=== PATIENT | female | born 1945 | race Caucasian/White ===

== ENCOUNTER 2018-10-10 12:03 | Emergency (ER) | payer MEDICARE, SELFPAY ==
[2018-10-10] VITALS (8 sets, daily range): BP systolic 117–149; BP diastolic 59–75; PULSE 70–76; RESP 12–20; TEMP 36.7; O2SAT 97–98
--- NOTE | 2018-10-10 12:17 | DI.RAD.S_ITS ---
PROCEDURE: XR CHEST 1V INDICATIONS: chest pain TECHNIQUE: One view of the chest was acquired. COMPARISON: [facility], , XR CXR 1 VIEW, 10/07/2001, 8:32. FINDINGS: Surgical changes and devices: None. Lungs and pleura: Lungs are clear. No pleural effusions or pneumothorax. Calcified nodules overlying the left upper lobe are unchanged since 2001, compatible with a benign process. Mediastinum: Mediastinal contours appear normal. Heart size is normal. Bones and chest wall: No suspicious bony lesions. Overlying soft tissues appear unremarkable. IMPRESSION: Stable chest. No acute cardiopulmonary process is evident. Dictated by: Ken Mcintyre M.D. on 10/10/2018 at 11:41 Approved by: Ken Mcintyre M.D. on 10/10/2018 at 11:43
--- NOTE | 2018-10-10 12:22 | ED_ITS ---
HPI - Chest Pain General Chief Complaint: Chest Pain Stated Complaint: Symptoms of heart attack Time Seen by Provider: 10/10/18 12:21 Source: patient Mode of arrival: ambulatory Limitations: no limitations History of Present Illness HPI narrative: 73-year-old female arrived by private vehicle. She states that approximately 1100 hours this morning she started having left-sided chest symptoms. She could not characterize it any more than discomfort. She did state that her teeth were hurting. No shortness of breath. At worst her pain was 8/10. She went home and her took her blood pressure in the systolic blood pressure was in the 140s which they report is high for her. She stated that the symptoms improved to 5/10. By the time she arrived here in the emergency department she states that it was barely there is maybe a 1 or 2/10. Has never had any symptoms like this in the past. Related Data Home Medications Medication Instructions Recorded Confirmed Lantus U-100 Insulin 0 unit SQ BID #0 02/01/16 atorvastatin [Lipitor] 20 mg PO BEDTIME #30 tab 02/01/16 10/10/18 gabapentin [Neurontin] 600 mg PO DAILY #0 02/01/16 10/10/18 pantoprazole [Protonix] 40 mg PO BID #0 tab 02/01/16 10/10/18 clonidine HCl 0.1 mg PO DAILY 10/10/18 10/10/18 estradiol 0.5 mg PO DAILY 10/10/18 10/10/18 levothyroxine 75 mcg PO DAILY 10/10/18 10/10/18 losartan 25 mg PO DAILY 10/10/18 10/10/18 metformin 10/10/18 Allergies Allergy/AdvReac Type Severity Reaction Status Date / Time No Known Drug Allergies Allergy Unknown Unverified 08/08/17 12:53 INGREDIENT: NO KNOWN - NO Allergy Unknown Uncoded 08/08/17 12:53 KNOWN DRUG ALLERGY Review of Systems Constitutional Denies fever(s) and Denies headache(s) ENT Ears, Nose, Mouth, and Throat: Denies vertigo, Denies dizziness and Denies headache(s) Cardiovascular Reports chest pain, Denies dyspnea and Denies dyspnea on exertion Respiratory Denies dyspnea and Denies dyspnea on exertion Gastrointestinal Gastrointestinal: Denies abdominal pain, Denies nausea and Denies vomiting Genitourinary Denies dysuria Musculoskeletal Denies myalgias and Denies arthralgias Integumentary/Breasts Denies lesions and Denies rash Neurologic Denies vertigo, Denies dizziness and Denies headache(s) Hematologic/Lymphatic Denies easy bleeding and Denies easy bruising [facility] Medical History Diabetes (Acute) Hypothyroid (Acute) Social History Smoking Status: Never smoker Social History Smoking Status: Never smoker Exam Initial Vital Signs Initial Vital Signs: Vital Signs Temperature 98.0 F 10/10/18 12:15 Pulse Rate 76 10/10/18 12:15 Respiratory Rate 18 10/10/18 12:15 Blood Pressure 149/66 H 10/10/18 12:15 Pulse Oximetry 98 10/10/18 12:15 Const General: cooperative, comfortable, well developed, well groomed and No acute distress Orientation: alert, awake and oriented x3 HENMT Head: normal to inspection and normocephalic Chest Chest: normal inspection of the chest Resp Effort & Inspection: normal respiratory effort Auscultation: clear to auscultation bilaterally Cardio Rate: regular rate Rhythm: regular rhythm Pulses: radial pulses present GI Inspection: non-distended Palpation: soft, No firm and No tender Skin Lesions: no lesions Rashes: no rashes Neuro General: alert, awake and oriented x3 Cognition: normal cognition Speech: speech normal Extrem General: normal to inspection, capillary refill normal and No edema Psych Appearance: grossly normal and well kempt Scores GCS [place] coma scale eye opening: Spontaneous [place] coma scale verbal response: Orientated Zeinab coma scale motor response: Obey commands [place] coma scale total score: 15 Course Orders Ordered: ED Orders 10/10/18 12:17 XR chest 1V Stat EKG-12 Lead Stat 10/10/18 12:30 Complete Blood Count AUTO DIFF Stat Comprehensive Metabolic Panel Stat Lipase Stat Partial Thromboplastin Time Stat Prothrombin Time INR Stat Troponin & CK Cardiac Panel Stat Heparin Sodium/Dextrose (Heparin Drip) 25,000 unit in 500 mls @ 19.272 mls/hr IV CONT MARY; Protocol Discontinued Medications Aspirin (Aspirin Chew) 324 mg PO NOW ONE Stop: 10/10/18 13:26 Last Admin: 10/10/18 13:30 Dose: 324 mg Heparin Sodium (Porcine) (Heparin) 4,000 unit IV NOW ONE Stop: 10/10/18 14:49 Vital Signs - 8 hr 10/10/18 12:15 10/10/18 13:32 Temperature 98.0 F Pulse Rate 76 70 Respiratory Rate 18 12 Blood Pressure 149/66 H Blood Pressure [Right Arm] 133/60 Pulse Oximetry 98 97 MDM - Chest Pain Lab Data Attestation: I reviewed the patient's lab results. Result diagrams: 10/10/18 12:30 10/10/18 12:30 Lab Results 10/10/18 10/10/18 10/10/18 Range/Units 12:30 12:30 12:30 WBC 7.0 (4.5-11.0) X10^3/uL RBC 4.93 (4.0-5.2) X10^6/uL Hgb 12.7 (12.0-16.0) g/dL Hct 38.6 (36-46) % MCV 78.3 L (80-100) fL MCH 25.8 L (26-34) PG MCHC 32.9 (30-36) % RDW 15.8 H (11.6-14.8) % Plt Count 265 (150-400) X10^3/uL Neut % (Auto) 67.4 (50-75) % Lymph % (Auto) 20.6 L (25-40) % Atkinson % (Auto) 8.2 (3-14) % Eos % (Auto) 2.9 (2-4) % Baso % (Auto) 0.9 (0-2) % Neut # (Auto) 4700 (0052-0239) /uL Lymph # (Auto) 1400 (0183-2852) /uL Atkinson # (Auto) 600 (0-900) /uL Eos # (Auto) 200 (0-450) /uL Baso # (Auto) 100 (0-100) /uL PT 11.1 (10.1-12.7) SECONDS INR 1.0 (0.9-1.3) APTT 34 (26.4-36.2) SECONDS Sodium 138 (137-145) mmol/L Potassium 4.4 (3.4-5.1) mmol/L Chloride 102 (98-107) mmol/L Carbon Dioxide 25 (22-32) mmol/L BUN 13 (7-17) mg/dL Creatinine 0.70 (0.52-1.04) mg/dL Estimated GFR > 60.0 (>60) mL/min BUN/Creatinine Ratio 18.6 (6-22) Glucose 123 H (80-110) mg/dL Calcium 9.8 (8.4-10.2) mg/dL Total Bilirubin 0.6 (0.2-1.3) mg/dL AST 20 (14-36) IU/L ALT 19 (9-52) IU/L Alkaline Phosphatase 80 (38-126) U/L Total Creatine Kinase 95 (30-135) U/L CK-MB (CK-2) TNP CK-MB (CK-2) Rel Index TNP Troponin I 0.192 H* (0.01-0.034) ng/mL Total Protein 7.5 (6.3-8.2) g/dL Albumin 4.4 (3.5-5.0) g/dL Globulin 3.1 (1.7-4.1) g/dL Albumin/Globulin Ratio 1.4 (1.0-2.8) Lipase 112 (23-300) U/L Imaging Data Chest x-ray: Radiologist's impression: [address] [address] XRay Report Signed Patient: Wendie Sandoval LMR#: [id number] : 6Acct:[id number] Age/Sex: 73 / FDate of Service: 10/10/18 Loc: ED Accession Number: [id number] Procedure: XR chest 1V Ordering Provider: Cl Israel D.O. PROCEDURE: XR CHEST 1V INDICATIONS: chest pain TECHNIQUE: One view of the chest was acquired. COMPARISON: [facility], , XR CXR 1 VIEW, 10/07/2001, 8:32. FINDINGS: Surgical changes and devices: None. Lungs and pleura: Lungs are clear. No pleural effusions or pneumothorax. Calcified nodules overlying the left upper lobe are unchanged since 2001, compatible with a benign process. Mediastinum: Mediastinal contours appear normal. Heart size is normal. Bones and chest wall: No suspicious bony lesions. Overlying soft tissues appear unremarkable. IMPRESSION: Stable chest. No acute cardiopulmonary process is evident. Dictated by: Ken Mcintyre M.D. on 10/10/2018 at 11:41 Approved by: Ken Mcintyre M.D. on 10/10/2018 at 11:43 ECG Data Attestation: I personally reviewed and interpreted this ECG as follows: Prior ECG tracings: not available for review Interpretation: Sinus rhythm Normal axis Ventricular rate is [address] T wave changes MDM Narrative Medical decision making narrative: Patient is given aspirin here in the emergency department. I did discuss the case with Dr. MAYNARD with Cardiology at [facility] who stated that given the story that I told him and the labs that I related him he would not take the patient to [facility] emergently. She has not ST elevations on her EKG. He recommended stress testing and following the enzymes. I then discussed the case with Dr. Abebe with Internal Medicine who will admit the patient for further evaluation and treatment. I discussed the transfer of the admission with the patient and her her at bedside. They both expressed understanding and agreement with plan. Heparin started in the emergency department. Discharge Plan Departure Patient Disposition: [facility] Clinical Impression: Non-ST elevation DC (NSTEMI) Prescriptions: No Action pantoprazole [Protonix] 40 MG tablet,delayed release (DR/EC) 40 mg PO BID Qty: 0 RF: 0 Lantus U-100 Insulin 100 UNIT/1 ML solution 30 unit SQ BID Qty: 0 RF: 0 atorvastatin [Lipitor] 20 MG tablet 20 mg PO BEDTIME Qty: 30 RF: 0 gabapentin [Neurontin] 300 MG capsule 600 mg PO QPM Qty: 0 RF: 0 metformin 500 mg tablet 1,000 mg PO BID RF: 0 clonidine HCl 0.1 mg tablet 0.1 mg PO QPM RF: 0 levothyroxine 75 mcg tablet 75 mcg PO DAILY RF: 0 losartan 25 mg tablet 25 mg PO DAILY RF: 0 estradiol 0.5 mg tablet 0.5 mg PO QPM RF: 0 Referrals: Cl Mccracken MD [Primary Care Provider] -
[2018-10-10 12:54] LABS: Add Manual Diff / Slide Review NO; Basophils Absolute Auto 100 /uL (0-100); Basophils Percent Auto 0.9 % (0-2); Eosinophils Absolute Auto 200 /uL (0-450); Eosinophils Percent Auto 2.9 % (2-4); Hematocrit 38.6 % (36-46); Hemoglobin 12.7 g/dL (12.0-16.0); Lymphocytes Absolute Auto 1400 /uL (1100-4500); Lymphocytes Percent Auto 20.6 % (25-40); Mean Corpuscular HGB Conc 32.9 % (30-36); Mean Corpuscular Hemoglobin 25.8 PG (26-34); Mean Corpuscular Volume 78.3 fL (80-100); Monocytes Absolute Auto 600 /uL (0-900); Monocytes Percent Auto 8.2 % (3-14); Neutrophils Absolute Auto 4700 /uL (1500-7000); Neutrophils Percent Auto 67.4 % (50-75); Platelet Count 265 X10^3/uL (150-400); Red Blood Cell Count 4.93 X10^6/uL (4.0-5.2); Red Cell Distribution Width 15.8 % (11.6-14.8)
[2018-10-10 12:58] LABS: Prothrombin Time 11.1 SECONDS (10.1-12.7)
[2018-10-10 13:01] LABS: PTT Partial Thromboplastin Tim 34 SECONDS (26.4-36.2)
[2018-10-10 13:05] LABS: Alanine Aminotransferase 19 IU/L (9-52); Albumin 4.4 g/dL (3.5-5.0); Albumin Globulin Ratio 1.4 (1.0-2.8); Alkaline Phosphatase 80 U/L (38-126); Aspartate Aminotransferase 20 IU/L (14-36); BUN Creatinine Ratio 18.6 (6-22); Bilirubin Total 0.6 mg/dL (0.2-1.3); Blood Urea Nitrogen 13 mg/dL (7-17); Calcium 9.8 mg/dL (8.4-10.2); Carbon Dioxide 25 mmol/L (22-32); Chloride 102 mmol/L (98-107); Creatine Kinase 95 U/L (30-135); Estimated Glomerular Filt Rate > 60.0 mL/min (>60); Globulin 3.1 g/dL (1.7-4.1); Glucose 123 mg/dL (80-110); HEMOLYSIS < 15 (0-50); Lipase 112 U/L (23-300); Potassium 4.4 mmol/L (3.4-5.1); Sodium 138 mmol/L (137-145); Total Protein 7.5 g/dL (6.3-8.2)
[2018-10-10 13:18] LABS: Troponin I 0.192 ng/mL (0.01-0.034)
[2018-10-10] MEDS: ASPIRIN 81 MG TAB 324 MG PO (13:30)
[2018-10-10] MEDS: HEPARIN 5,000 UNIT/ML VIAL 4000 UNIT IV (15:05)
[2018-10-10] MEDS: HEPARIN DRIP 25,000 UNIT/500 ML IV.SOLN 19.272 UNIT IV (15:06)
== END 2018-10-10 18:11 | disposition short-term general hospital (02) ==
PROVIDERS: Emergency Provider Emergency Medicine; Family Provider Family Medicine; PCP Family Medicine
DX: I21.4 Non-ST elevation (NSTEMI) myocardial infarction (principal)
CPT/HCPCS: 36591; 71045; 80053; 82550; 83690; 84484; 85025; 85610; 85730; 93005; 96365; 96366; 96376; 99284; 99285; J1644

== ENCOUNTER 2019-03-05 08:30 | Outpatient (RCR) | payer MEDICARE, SELFPAY | END 2019-03-10 11:11 | LOC: CAR 08:30 | PROVIDERS: PCP Family Medicine; Visit Provider Family Medicine | DX: I21.4 Non-ST elevation (NSTEMI) myocardial infarction (principal) | CPT/HCPCS: 93798 ==

== ENCOUNTER → 2020-02-05 16:47 | Outpatient (CLI) | payer MEDICARE, OTHER, SELFPAY ==
--- NOTE | 2020-02-05 | DI.MG.S_ITS ---
BILATERAL DIGITAL SCREENING MAMMOGRAM 3D/2D WITH CAD: 02/05/2020 CLINICAL: Routine screening. Comparison is made to exams dated: 08/03/2015 mammogram, 09/11/2013 mammogram, 06/02/2010 mammogram, and 01/21/2008 mammogram - [facility]. There are scattered fibroglandular elements in both breasts. Current study was also evaluated with a Computer Aided Detection (CAD) system. No significant masses, calcifications, or other findings are seen in either breast. There has been no significant interval change. IMPRESSION: NEGATIVE There is no mammographic evidence of malignancy. A 1 year screening mammogram is recommended. This exam was interpreted at Station ID: [id number]. NOTE: For mammograms, a report in lay terms will be sent to the patient. Approximately 15% of breast malignancies will not be visualized mammographically. In the management of a palpable breast mass, a negative mammogram must not discourage biopsy of a clinically suspicious lesion. Electronically Signed By: Abdiaziz burris/vicente:02/05/2020 17:27:33 letter sent: Normal Exam ACR BI-RADS Category 1: Negative [id number]
== END ==
PROVIDERS: PCP Family Medicine; Referring Provider Family Medicine; Visit Provider Family Medicine
DX: Z12.31 Encounter for screening mammogram for malignant neoplasm of breast (principal)
CPT/HCPCS: 77063; 77067

== ENCOUNTER → 2020-11-27 11:06 | Outpatient (CLI) | payer MEDICARE, OTHER, SELFPAY ==
--- NOTE | 2020-11-27 11:07 | DI.MRI.S_ITS ---
PROCEDURE: MR KNEE RT WO CON INDICATIONS: Unspecified internal derangement of right knee TECHNIQUE: Noncontrast sagittal PD fast spin echo and T2 fast spin echo with fat saturation, sagittal 3-D FLASH with fat saturation; coronal T1 spin echo and PD fast spin echo with fat saturation, and axial PD fast spin echo with fat saturation through the knee. COMPARISON: [facility], MR, KNEE WITHOUT CONTRAST, 07/06/2014, 14:26. FINDINGS: Menisci: Medial meniscus: Ill-defined tear of the medial meniscal body with abnormal signal extending to the superior articular surface. Lateral meniscus: Lateral meniscal tear also noted involving the body and possibly the anterior horn to much lesser extent. There is near complete extrusion. Cruciate ligaments: Anterior cruciate ligament: Intact. Posterior cruciate ligament: Intact. Medial structures: The medial collateral ligament: Intact. Semimembranosus tendon: Intact. Visualized pes anserinus tendons: Intact. Bursal fluid: none. Lateral structures: The lateral collateral ligament intact. Biceps femoris tendon appears intact. Popliteus tendon grossly unremarkable. Iliotibial band appears intact. Anterior structures: Quadriceps tendon: Intact. Medial patellofemoral ligament: Intact. Lateral patellofemoral ligament: Intact. Patellar tendon: Mild tendinopathy. Anterior soft tissues: Prepatellar and superficial infrapatellar subcutaneous edema/fluid. Deep infrapatellar region: Normal. Bones and cartilage: Marrow: No focal marrow contusion or discrete low signal fracture line. Medial compartment: Diffuse partial-thickness loss of the femoral and tibial cartilage. Lateral compartment: Partial-thickness loss of the central weight-bearing femoral and tibial articular cartilage. Patellofemoral compartment: No focal chondral defect. Joint space: Effusion: Moderate joint effusion. Popliteal fossa: Hernandez's cyst measuring approximately 5 cm in the cephalocaudal dimension. Loose bodies: None. IMPRESSION: Medial meniscal tear involving the body. Lateral meniscal tear involving the body and anterior horn with near complete extrusion. Mild joint degeneration as above. Moderate joint effusion Hernandez's cyst. Patellar tendinopathy with prominent prepatellar and superficial infrapatellar subcutaneous edema. Dictated by: Javon Pineda M.D. on 11/29/2020 at 9:25 Approved by: Javon Pineda M.D. on 11/29/2020 at 9:50
== END ==
PROVIDERS: PCP Orthopaedic Surgery; Referring Provider Orthopaedic Surgery; Visit Provider Orthopaedic Surgery
DX: S83.241A Other tear of medial meniscus, current injury, right knee, initial encounter (principal); S83.281A Other tear of lateral meniscus, current injury, right knee, initial encounter; M17.11 Unilateral primary osteoarthritis, right knee; M25.461 Effusion, right knee; M71.21 Synovial cyst of popliteal space [Baker], right knee
CPT/HCPCS: 73721

== ENCOUNTER → 2022-08-03 13:36 | Outpatient (CLI) | payer MEDICARE, OTHER, SELFPAY ==
--- NOTE | 2022-08-03 | DI.MRI.S_ITS ---
PROCEDURE: MR SHOULDER RT WO CON INDICATIONS: PAIN IN R SHOULDER TECHNIQUE: Noncontrast oblique coronal T2 fast spin echo with fat saturation, oblique sagittal T1 spin echo and T2 fast spin echo with fat saturation, axial T1 spin echo and T2 fast spin echo with fat saturation through the shoulder. COMPARISON: None. FINDINGS: Image quality: Excellent. Rotator cuff: Focal full-thickness tearing of the distal supraspinatus tendon approximately 1.4 cm from the distal insertion measuring 0.7 cm in anterior-posterior dimension without significant separation of tendon fibers. Low-grade partial intrasubstance tearing of the infraspinatus tendon at the critical zone with fluid tracking medially along the central tendinous band of the infraspinatus muscle. The teres minor tendon is intact. There is high-grade partial intrasubstance tearing of the subscapularis tendon at the superior insertion. No significant rotator cuff muscle atrophy is seen. Bones and bursae: No acute trabecular bone injury or fracture. Chronic traction cystic changes are seen at the posterosuperior humeral head and greater tuberosity near the rotator cuff tendon insertions. Mild partial-thickness cartilage irregularity in the glenohumeral joint. Moderate degenerative changes are seen at the acromioclavicular joint with subchondral cystic changes and subchondral edema as well as small marginal osteophytes. There is a small amount of fluid in the subacromial/subdeltoid bursa that likely communicates with the glenohumeral joint space. No significant glenohumeral effusion. Capsule and soft tissues: Mild diffuse labral degeneration without an acute displaced tear. The proximal biceps long head tendon demonstrates mild tendinosis and perching along the medial aspect of the bicipital groove. There is effacement of the normal fat signal in the rotator interval. The anterior band of the inferior glenohumeral ligament appears mildly thickened. IMPRESSION: 1. Focal full-thickness tearing of the supraspinatus tendon at the critical zone approximately 1.4 cm from the distal insertion measuring 0.7 cm in anterior-posterior dimension. No significant retraction of torn tendon fibers. 2. Low-grade partial intrasubstance tearing of the distal infraspinatus tendon superimposed on moderate tendinosis. 3. High-grade partial intrasubstance tearing of the subscapularis tendon at the superior insertion superimposed on chronic tendinosis. 4. Mild tendinosis of the proximal biceps long head tendon with perching along the medial aspect of the bicipital groove. 5. Mild labral degeneration without a displaced tear. Mild grade 2 chondromalacia in the glenohumeral joint. 6. Moderate acromioclavicular joint osteoarthrosis. 7. Small subacromial/subdeltoid bursal effusion communicates with the glenohumeral joint space. 8. Partial effacement of the rotator interval fat and mild thickening of the inferior glenohumeral ligament are nonspecific, but can be seen in the setting of the clinical syndrome of adhesive capsulitis. Approved by: Young Birmingham M.D. on 08/03/2022 at 14:47
== END ==
PROVIDERS: PCP Family Medicine; Referring Provider Family Medicine; Visit Provider Family Medicine
DX: M75.121 Complete rotator cuff tear or rupture of right shoulder, not specified as traumatic (principal); M19.011 Primary osteoarthritis, right shoulder; M94.261 Chondromalacia, right knee; M25.511 Pain in right shoulder
CPT/HCPCS: 73221

== ENCOUNTER → 2025-02-12 11:41 | Outpatient (CLI) | payer MEDICARE, OTHER, SELFPAY ==
--- NOTE | 2025-02-12 11:43 | DI.RAD.S_ITS ---
PROCEDURE: XR DEXA AXIAL SKELETON INDICATIONS: Postmenopausal Screening COMPARISON: None. FINDINGS: Lumbar Spine: Bone mineral density 1.386 g/cm2, T score 3.1. Left Femoral Neck: Bone mineral density 0.95 days g/cm2, T score 1.0. Left Hip: Bone mineral density 1.117 g/cm2, T score 1.4. Fracture Risk Calculation (when applicable): 10-year fracture risk of a major osteoporotic fracture 8.7 percent and of a hip fracture 0.8 percent. (T score greater or equal to -1.0 to: NORMAL) (T score from -1.1 to -2.4: OSTEOPENIA) (T score less than or equal to -2.5: OSTEOPOROSIS) IMPRESSION: Normal bone mineral density Follow-up guidelines as follows: Osteoporosis: Consider a repeat DEXA and Vertebral Fracture Assessment (VFA) exam in 2 years or sooner if medically necessary, to reassess this patient's status. Osteopenia: Consider a repeat DEXA in 2-3 years to reassess this patient's status, or if there is a new clinical indication. Normal: Consider a repeat DEXA in 5 years or sooner, or if there is a new clinical indication. All treatment decisions require clinical judgment and consideration of individual patient factors, including patient preferences, comorbidities, previous drug use, risk factors not captured in the FRAX model (e.g., frailty, falls, vitamin D deficiency, increased bone turnover, interval significant decline in bone density ) and possible under- or over-estimation of fracture risk by FRAX. In addition, the NOF Guide recommends that FDA-approved medical therapies be considered in postmenopausal women and men age >= 50 years with a: * Hip or vertebral (clinical or morphometric) fracture * T-score of <=-2.5 at the spine or hip * Ten-year fracture probability by FRAX of >= 3% for hip fracture or >=20% for major osteoporotic fracture. Dictated by: Olga Lidia Brannon M.D. on 02/12/2025 at 16:28 Approved by: Olga Lidia Brannon M.D. on 02/12/2025 at 16:29
== END ==
LOC: RAD 11:43
PROVIDERS: PCP Family Medicine; Referring Provider Family Medicine; Visit Provider Family Medicine
DX: Z78.0 Asymptomatic menopausal state (principal)
CPT/HCPCS: 77080